=== PATIENT | male | born 1960 | race Caucasian/White ===

== ENCOUNTER 2016-08-08 19:03 | Emergency (ER) | payer SELFPAY ==
[~2016-08-08] VITALS: Ht 188 cm; Wt 106.0 kg
[~2016-08-08 19:03] MED LIST: ACYC400T2 PO; TRAM50TA2 PO
[2016-08-08 19:08] VITALS: Ht 188 cm; Wt 106.0 kg
== END 2016-08-08 21:02 | disposition left against medical advice (07) ==
LOC: FTE 19:03
DX: Z53.21 Procedure and treatment not carried out due to patient leaving prior to being seen by health care provider (principal)

== ENCOUNTER 2016-08-17 06:53 | Emergency (ER) | payer OTHER ==
[~2016-08-17] VITALS: Wt 106.8 kg
[2016-08-17 07:13] VITALS: BP 133/78; PULSE 79; RESP 20; TEMP 98.8
--- NOTE | 2016-08-17 07:33 | ERD ---
ER Documentation Chief Complaint Date/Time DATE: 08/17/16 TIME: 07:32 Chief Complaint right arm numbness and bilateral leg intermittent weakness. no headache. HPI 56-year-old male with history of depression, shingles with postherpetic neuralgia, BPH and chronic pain ambulatory to the ED complaining of 1- 2 week history of worsening pain and numbness to his right upper extremity. History of shingles on that side with recently diagnosed staph infection being treated by his PMD, Dr. Brandon Bolivar with antibiotics. Now with a 1-2 week history worsening , pain and paresthesias to the right upper extremity. The symptoms are positional. No weakness. Denies headache or visual changes. He also complains of chronic generalized lower extremity weakness. No urinary or fecal incontinence. Denies chest pain or palpitations. No abdominal pain, nausea vomiting. No shortness of breath or cough. No fevers or chills. ROS All systems reviewed and are negative except as per history of present illness. Medications Home Meds Active Scripts Tramadol HCl (Tramadol HCl) 50 Mg Tab, 50 MG PO Q4 Y for PAIN, #20 TAB Prov:ULI RIOS PA-C 01/20/15 Acyclovir* (Acyclovir*) 400 Mg Tablet, 400 MG PO TID for 7 Days, TAB Prov:ULI RIOS PA-C 01/19/15 Allergies Allergies: Coded Allergies: No Known Drug Allergies (Verified Allergy, Unknown, 08/08/16) PMhx/Soc Reviewed in chart. As per HPI. History of Surgery: Yes (JAW, L. HIP RESURFACING) Anesthesia Reaction: No Hx Neurological Disorder: No Hx Respiratory Disorders: No Hx Cardiac Disorders: Yes (HIGH CHOLESTEROL) Hx Psychiatric Problems: No Hx Miscellaneous Medical Probl: Yes (SHINGLES.) Hx Alcohol Use: No Hx Substance Use: No Hx Tobacco Use: No Smoking Status: Never smoker FmHx Father: Diabetes. No family history of stroke or cancer Physical Exam Vitals Vital Signs Date Time Temp Pulse Resp B/P Pulse Ox O2 Delivery O2 Flow Rate FiO2 08/17/16 07:13 98.8 79 20 133/78 98 Room Air 08/17/16 07:02 98.8 84 20 133/78 98 Physical Exam Const: Alert, no acute distress. Head: Atraumatic Eyes: Normal Conjunctiva ENT: Normal External Ears, Nose and Mouth. Neck: Full range of motion. Nontender. No meningismus. Resp: Clear to auscultation bilaterally Cardio: Regular rate and rhythm, no murmurs Abd: Soft, non tender, non distended. Normal bowel sounds. No masses or abnormal pulsations. Skin: Multiple excoriations of the right shoulder but no erythema, induration , tenderness or discharge. Back: No midline or flank tenderness Ext: No cyanosis, or edema. Pulses are 4+ in all extremities. Neur: Awake and alert. Cranial nerves II through XII are grossly intact. Motor and sensory equal bilaterally. Gait is normal. No focal deficit observed. Psych: Normal Mood and Affect Results 24 hrs Current Medications Medications (Trade) Dose Ordered Sig/[place] Route PRN Reason Start Time Stop Time Status Last Admin Dose Admin Gabapentin (Neurontin) 300 mg ONCE ONCE PO 08/17/16 08:00 08/17/16 08:01 Procedures/MDM DOCUMENTS REVIEWED: ED nurse, prior ED, prior records. Patient has had multiple previous ED visits for depression and pain related issues. [employer] DECISION MAKIN-year-old male with history of depression, shingles with postherpetic neuralgia, BPH and chronic pain ambulatory to the ED complaining of 1- 2 week history of worsening pain and paresthesias of the right upper extremity. Symptoms are consistent with postherpetic neuralgia. Chronic lower extremity symptoms of uncertain etiology. No focal neurologic deficit or signs of CVA/TIA. No signs of aortic dissection or DVT. Spinal etiology such as cauda equina, spinal epidural abscess or disc herniation or likely. Spinal stenosis is considered. He has no acute neurologic change, signs of infection or indication for advanced imaging at this point. Stable depression without suicidal or homicidal ideations. Stable for discharge with gabapentin, precautionary instructions and outpatient follow-up with his PMD as soon as possible. Counseled patient regarding diagnostic workup, diagnosis and need for followup. Understands to return to ED if symptoms recur, worsen or any other concerns. Departure Diagnosis: Primary Impression: Postherpetic neuralgia Additional Impression: Chronic pain Chronic pain type: chronic pain syndrome Qualified Code: G89.4 - Chronic pain syndrome Condition: Stable CHERRIE DESHPANDE MD Aug 17, 2016 07:33
[2016-08-17] MEDS ORDERED: GABA300C16 PO (07:46)
[2016-08-17] MEDS ORDERED: GABAPENTIN 300 MG CAP PO ONE (08:00)
== END 2016-08-17 08:10 | disposition home or self-care (01) ==
LOC: E/R 06:53
DX: B02.29 Other postherpetic nervous system involvement (principal); G89.4 Chronic pain syndrome
CPT/HCPCS: 99283

== ENCOUNTER 2016-10-02 02:08 | Emergency (ER) | payer SELFPAY ==
[~2016-10-02] VITALS: Ht 188 cm; Wt 108.0 kg
[~2016-10-02 02:08] MED LIST changes: +GABA300C16 PO
[2016-10-02 02:25] VITALS: Ht 188 cm; Wt 108.0 kg
== END 2016-10-02 03:09 | disposition left against medical advice (07) ==
LOC: E/R 02:08
DX: Z53.21 Procedure and treatment not carried out due to patient leaving prior to being seen by health care provider (principal)

== ENCOUNTER 2016-12-08 06:51 | Emergency (ER) | payer SELFPAY ==
[~2016-12-08] VITALS: Wt 110.5 kg
== END 2016-12-08 08:43 | disposition left against medical advice (07) ==
LOC: FTE 06:51
DX: Z53.21 Procedure and treatment not carried out due to patient leaving prior to being seen by health care provider (principal)

== ENCOUNTER 2016-12-14 14:41 | Emergency (ER) | payer OTHER ==
[~2016-12-14] VITALS: Ht 188 cm; Wt 110.0 kg
[2016-12-14 14:43] VITALS: Ht 188 cm; Wt 110.0 kg
[2016-12-14] MEDS ORDERED: MUPI22OI2 TOP (15:16)
--- NOTE | 2016-12-14 15:45 | ERD ---
ER Documentation Chief Complaint Date/Time DATE: 12/14/16 TIME: 15:38 Chief Complaint bleeding from lesions HPI 56-year-old male complaining of skin ulcer times approximately 1 year. Patient stated the ulcer started shortly after he is herpes zoster outbreak. He has been given by his PCP multiple course of antibiotics without improvement. A few months ago, PCP had cultured his ulcer, culture is positive for MRSA. The symptoms have improved after appropriate antibiotics. However, a week ago he started developing new ulcers, this time of his chest, again within the herpes zoster scars. Also has been losing. Denies fever chills. Denies pain. Denies purulent drainage. ROS All systems reviewed and are negative except as per history of present illness. Medications Home Meds Active Scripts Mupirocin* (Bactroban*) 2% -22 Gram Oint...g., 1 APPLIC TOP BID for 14 Days, EA Prov:DAVID ADAMS [employer]CH[employer]IST 12/14/16 Gabapentin* (Gabapentin*) 300 Mg Capsule, 300 MG PO TID, #30 CAP Prov:CHERRIE DESHPANDE MD 08/17/16 Tramadol HCl (Tramadol HCl) 50 Mg Tab, 50 MG PO Q4 Y for PAIN, #20 TAB Prov:ULI RIOS PA-C 01/20/15 Acyclovir* (Acyclovir*) 400 Mg Tablet, 400 MG PO TID for 7 Days, TAB Prov:ULI RIOS PA-C 01/19/15 Allergies Allergies: Coded Allergies: No Known Drug Allergies (Verified Allergy, Unknown, 08/08/16) PMhx/Soc History of Surgery: Yes (JAW, L. HIP RESURFACING) Anesthesia Reaction: No Hx Neurological Disorder: No Hx Respiratory Disorders: No Hx Cardiac Disorders: Yes (HIGH CHOLESTEROL) Hx Psychiatric Problems: No Hx Miscellaneous Medical Probl: Yes (SHINGLES.) Hx Alcohol Use: No Hx Substance Use: No Hx Tobacco Use: Yes Smoking Status: Current every day smoker Physical Exam Vitals Vital Signs Date Time Temp Pulse Resp B/P Pulse Ox O2 Delivery O2 Flow Rate FiO2 12/14/16 14:43 97.8 64 18 120/63 98 Physical Exam General: Well-developed, well-nourished, conscious and coherent, in no distress Skin: Warm and dry, good texture and turgor. Multiple, shallow open ulcers noted within the herpes zoster scars along C4 and C5 dermatome. No bleeding or purulent drainage. No surrounding erythema or swelling. Head: Normocephalic without evidence of trauma Eyes: Sclera and conjunctivae normal; pupils equal, round, and reactive to light; extraocular movements are intact Neck: Supple without meningismus or adenopathy. Carotids are equal. Trachea midline. No bruits or JVD Chest: Normal AP diameter. Good expansion without retractions. Nontender. Lungs are clear to auscultate bilaterally with good tidal volume Heart: Regular rate and rhythm. No murmur, rub, or gallops heard Extremities: Full range of motion. Good strength bilaterally. No clubbing, cyanosis, or edema. Peripheral pulses are intact. Sensation intact Neuro: Alert and oriented 4, GCS 15. Cranial nerves grossly intact. Motor and sensory exams nonfocal. Moves all extremities. Speech clear. Gait normal Procedures/MDM Well-appearing 56-year-old male presented to ED with nonhealing ulcers. There is no sign of surrounding cellulitis. I did not feel oral antibiotic treatment is warranted at this time. Patient will be given prescription of Bactroban ointment to use topically, as well as intranasally to eradicate MRSA. Patient is also given referral to [facility] for follow-up wound care. Patient appears well, stable for discharge and outpatient management. Medical decision making shared with patient and family. Education provided to patient and family. Patient and family expressed understanding of the plan. Smoking cessation counseling provided. Total time, 3 minutes. Medications on discharge: Bactroban. Follow-up: Primary care provider in 2-3 days or return to ED if worse. Patient appears to have eloped before receiving prescription and referral information. Departure Diagnosis: Primary Impression: Non-healing ulcer Non-pressure ulcer stage: limited to breakdown of skin Qualified Code: L98.491 - Non-healing ulcer, limited to breakdown of skin Additional Impression: History of MRSA infection Condition: Stable Patient Instructions: [place] Skin Infection, Suspected Or Confirmed Referrals: [facility] Additional Instructions: Follow up with wound care ([facility]). DAVID ADAMS NP Dec 14, 2016 15:45
== END 2016-12-14 17:07 | disposition home or self-care (01) ==
LOC: FTE 14:41
DX: L98.491 Non-pressure chronic ulcer of skin of other sites limited to breakdown of skin (principal); R40.2412 Glasgow coma scale score 13-15, at arrival to emergency department; F17.210 Nicotine dependence, cigarettes, uncomplicated; Z86.14 Personal history of Methicillin resistant Staphylococcus aureus infection
CPT/HCPCS: 99283

== ENCOUNTER 2016-12-31 20:08 | Emergency (ER) | payer SELFPAY ==
[~2016-12-31] VITALS: Ht 172.7 cm; Wt 107.0 kg
[~2016-12-31 20:08] MED LIST changes: +MUPI22OI2 TOP
[2016-12-31 20:11] VITALS: Ht 172.7 cm; Wt 107.0 kg
== END 2016-12-31 22:00 | disposition left against medical advice (07) ==
LOC: FTE 20:08
DX: Z53.21 Procedure and treatment not carried out due to patient leaving prior to being seen by health care provider (principal)

== ENCOUNTER 2017-04-17 22:53 | Emergency (ER) | payer SELFPAY ==
[~2017-04-17] VITALS: Ht 188 cm; Wt 114.5 kg
[2017-04-17 23:00] VITALS: Ht 188 cm; Wt 114.5 kg
== END 2017-04-18 01:41 | disposition left against medical advice (07) ==
LOC: E/R 22:53
DX: Z53.21 Procedure and treatment not carried out due to patient leaving prior to being seen by health care provider (principal)

== ENCOUNTER 2017-08-20 02:49 | Emergency (ER) | END 2017-08-20 03:30 | disposition home or self-care (01) ==

== ENCOUNTER 2017-09-07 12:25 | Emergency (ER) | END 2017-09-07 16:20 | disposition left against medical advice (07) ==

== ENCOUNTER 2017-12-15 19:17 | Emergency (ER) | END 2017-12-15 20:25 | disposition home or self-care (01) ==